=== PATIENT | male | born 1995 | race Two or more races ===

== ENCOUNTER 2018-09-29 10:21 | Inpatient (IN) | payer MEDICAID, OTHER ==
[~2018-09-29] VITALS: Ht 183.1 cm; Wt 75.7 kg
[2018-09-29] MEDS ORDERED: MORPHINE SULFATE 4 MG/ML CPJ (NOT FOR IM USE) IV STA (11:30)
[2018-09-29] MEDS ORDERED: ONDANSETRON HCL 4MG/2ML INJ IV STA (11:30)
[2018-09-29] MEDS ORDERED: SODIUM CHLORIDE 0.9% 1,000 ML IV ONE (11:30)
[2018-09-29 12:00] LABS: HEMATOCRIT. 44.3 % (42.0-52.0); HEMOGLOBIN. 14.8 g/dL (14.0-18.0); MEAN CORPUSCULAR HEMOGLOBIN 32.4 pg (28.0-32.0); MEAN PLATELET VOLUME 8.7 fl (7.4-10.4); PLATELET 157 x1000/uL (130-400); RED BLOOD CELL COUNT 4.57 mill/uL (4.7-6.1); RED CELL DISTRIBUTION WIDTH 12.7 % (11.6-14.6)
[2018-09-29 12:19] LABS: INR 1.1; PARTIAL THROMBOPLASTIN TIME 28.9 sec (23.4-31.0); PROTHROMBIN TIME 11.1 sec (9.1-11.1)
[2018-09-29 12:37] LABS: PLATELET ESTIMATE NORMAL
[2018-09-29] MEDS ORDERED: SODIUM CHLORIDE 0.9% 1000ML BAG (SEPSIS BOLUS) IV ONE (12:45)
[2018-09-29] MEDS ORDERED: PIPERACILLIN/TAZ 3.375G PREMIX 50 ML IV ONE (12:45)
[2018-09-29 12:46] LABS: CHLORIDE 100 mEq/L (98-107)
[2018-09-29] MEDS ORDERED: DIATR MEGLU/DIATRIZOATE SOLN 120ML ONE (13:17)
[2018-09-29] MEDS ORDERED: SKIN ADHESIVE 0.7 GM EA TOP ONE ×2 (13:34→15:22)
[2018-09-29] MEDS ORDERED: BUPIVACAINE HCL 0.5% (5MG/ML) 50ML ONE (13:35)
[2018-09-29] MEDS ORDERED: DEXT 5%/0.45% NACL 1000ML 1,000 ML IV SCH ×2 (13:39→15:45)
[2018-09-29] MEDS ORDERED: DOCUSATE SODIUM 100MG CAPSULE PO PRN ×2 (13:45→15:45)
[2018-09-29] MEDS ORDERED: CLONIDINE 0.1MG TABLET PO PRN ×2 (13:45→15:45)
[2018-09-29] MEDS ORDERED: MAGNESIUM/ALUMINUM HYDROXIDE/SIMETHICONE 30ML UDC PO PRN ×2 (13:45→15:45)
[2018-09-29] MEDS ORDERED: NA PHOS,M-B/NA PHOS,DI-BA ENEMA 118ML PR PRN ×2 (13:45→15:45)
[2018-09-29] MEDS ORDERED: GUAIFENESIN 200MG/10ML SUGAR FREE UDC PO PRN ×2 (13:45→15:45)
[2018-09-29] MEDS ORDERED: HYDROCODONE/ACETAMINOPHEN 5/325MG TABLET PO PRN ×6 (13:45→16:00)
[2018-09-29] MEDS ORDERED: MORPHINE SULFATE 2 MG/ML CPJ (NOT FOR IM USE) IV PRN ×3 (13:45→15:45)
[2018-09-29] MEDS ORDERED: DIPHENHYDRAMINE 50MG/ML VIAL IV PRN ×2 (13:45→15:45)
[2018-09-29] MEDS ORDERED: ACETAMINOPHEN 325MG TABLET PO PRN ×4 (13:45→16:00)
[2018-09-29] MEDS ORDERED: ONDANSETRON HCL 4MG/2ML INJ IV PRN ×6 (13:45→16:00)
[2018-09-29] MEDS ORDERED: IPRATROPIUM/ALBUTEROL 0.5-3(2.5)MG/3ML NEB INH PRN ×2 (13:45→17:45)
[2018-09-29] MEDS ORDERED: PIPERACILLIN/TAZ 3.375G PREMIX 50 ML IV SCH ×2 (13:45→15:45)
[2018-09-29] MEDS ORDERED: LORAZEPAM 2MG/ML CPJ IV PRN ×2 (13:45→15:45)
[2018-09-29 14:24] LABS: CHLORIDE 105 mEq/L (98-107)
[2018-09-29] MEDS ORDERED: NEOSTIGMINE METHYLSULFATE 1MG/ML 10 ML VIAL ONE (14:46)
[2018-09-29] MEDS ORDERED: ROCURONIUM BROMIDE 10MG/ML VIAL 5ML IV ONE (14:46)
[2018-09-29] MEDS ORDERED: PROPOFOL 200MG/20ML VIAL IV ONE (14:46)
[2018-09-29] MEDS ORDERED: FENTANYL CITRATE/PF 50MCG/ML 2ML VIAL ONE (14:46)
[2018-09-29] MEDS ORDERED: MIDAZOLAM HCL 2 MG/2 ML VIAL ONE (14:47)
[2018-09-29] MEDS ORDERED: GLYCOPYRROLATE 0.2 MG/ML 2ML VIAL ONE (14:47)
[2018-09-29] MEDS ORDERED: ONDANSETRON HCL 4MG/2ML INJ ONE (15:11)
[2018-09-29] MEDS ORDERED: DEXAMETHASONE 4MG/ML 1ML VIAL ONE (15:11)
[2018-09-29] MEDS ORDERED: HYDROMORPHONE HCL/PF 2MG/ML CPJ IV PRN (15:30)
[2018-09-29] MEDS ORDERED: MEPERIDINE HCL/PF 25MG/ML CPJ IV PRN ×2 (15:30→15:45)
[2018-09-29] MEDS ORDERED: LABETALOL 5MG/ML SYR 20 MG/4 ML SYRINGE IV PRN ×2 (15:30→15:45)
[2018-09-29] MEDS ORDERED: DEXT 5%/0.45% NACL KCL 20MEQ/L 1,000 ML IV SCH (15:31)
[2018-09-29] MEDS ORDERED: HYDROMORPHONE HCL/PF 2MG/ML (OR) ONE (15:42)
[2018-09-29] MEDS ORDERED: MORPHINE SULFATE 4 MG/ML CPJ (NOT FOR IM USE) IV PRN (15:45)
[2018-09-29] MEDS: HYDROMORPHONE HCL/PF 2MG/ML CPJ IV PRN ×2 (18:55→19:18)
[2018-09-29 20:00] VITALS: BP 113/67
[2018-09-29] MEDS ORDERED: SODIUM CHLORIDE 0.9% INJ 3ML FLUSH IVF SCH ×2 (22:00)
[2018-09-29] MEDS: MORPHINE SULFATE 4 MG/ML CPJ (NOT FOR IM USE) IV PRN (22:24)
[2018-09-29 23:00] VITALS: BP 113/106
[2018-09-29] MEDS: DEXT 5%/0.45% NACL KCL 20MEQ/L 1,000 ML IV SCH (23:28)
[2018-09-29] MEDS: PIPERACILLIN/TAZ 3.375G PREMIX 50 ML IV SCH (23:28)
[2018-09-30] MEDS: MORPHINE SULFATE 4 MG/ML CPJ (NOT FOR IM USE) IV PRN ×4 (01:34→12:26)
[2018-09-30 04:00] VITALS: BP 109/57
[2018-09-30] MEDS: PIPERACILLIN/TAZ 3.375G PREMIX 50 ML IV SCH ×2 (05:39→09:13)
[2018-09-30 08:00] VITALS: BP 116/92
[2018-09-30] MEDS: DEXT 5%/0.45% NACL KCL 20MEQ/L 1,000 ML IV SCH (11:19)
[2018-09-30 12:00] VITALS: BP 118/68
[2018-09-30 14:56] VITALS: BP 116/70
== END 2018-09-30 15:30 | disposition home or self-care (01) | DRG 234 ==
LOC: ER 10:21 → EDBD 10:21 → EDBEDREQ 13:30 → EDBEDREQTM 13:30 → ER 15:36 → ORIP 18:34 → 6EST 19:50
PROVIDERS: ADMIT Surgery; ATTEND Surgery
PROC: 0DTJ4ZZ Resection of Appendix, Percutaneous Endoscopic Approach (ICD-10-PCS; principal; 2018-09-29)
DX: K35.80 Unspecified acute appendicitis (principal); R65.10 Systemic inflammatory response syndrome (SIRS) of non-infectious origin without acute organ dysfunction; E86.0 Dehydration
CPT/HCPCS: 36415; 74176; 80048; 83605; 88304; 93005; 96361; 96374; 96375; 99285; J1100; J1170; J2250; J2270; J2405; J2543; J2704; J2710; J3010; J3490; J7030; Q9963

== ENCOUNTER 2019-06-01 14:12 | Emergency (ER) | payer MEDICAID ==
[~2019-06-01] VITALS: Ht 185.4 cm; Wt 75.0 kg
[2019-06-01] MEDS: KETOROLAC 60MG/2ML VIAL IM ONE (17:20)
[2019-06-01 18:17] VITALS: BP 122/58
== END 2019-06-01 18:18 | disposition home or self-care (01) ==
LOC: ER 14:12
DX: J98.8 Other specified respiratory disorders (principal)
CPT/HCPCS: 87804; 96372; 99283; J1885

== ENCOUNTER 2020-02-11 19:36 | Emergency (ER) | payer MEDICAID ==
[~2020-02-11] VITALS: Ht 182.9 cm; Wt 73.0 kg
[2020-02-11] MEDS ORDERED: TRAMADOL 50MG TABLET PO ONE (20:45)
[2020-02-11 20:51] VITALS: BP 136/82
== END 2020-02-11 22:13 | disposition home or self-care (01) ==
LOC: ER 19:36
DX: S02.2XXA Fracture of nasal bones, initial encounter for closed fracture (principal); Z90.49 Acquired absence of other specified parts of digestive tract; Y04.0XXA Assault by unarmed brawl or fight, initial encounter; Y93.89 Activity, other specified; Y92.89 Other specified places as the place of occurrence of the external cause
CPT/HCPCS: 70486; 99284